=== PATIENT | male | born 1980 | race Caucasian/White ===

== ENCOUNTER 2018-06-09 14:01 | Emergency (ER) | payer SELFPAY ==
[~2018-06-09] VITALS: Ht 185.4 cm; Wt 102.5 kg
--- NOTE | 2018-06-09 14:58 | NUR ---
BIB SELF W C/O RLQ ABD PAIN RADIATING TO R LOWER BACK, NAUSEA SINCE THIS MORNING, TO ER BED 12, HOOKED TO PAUL, CHANGED TO ELISA, AWAITING MD OSORIO
--- NOTE | 2018-06-09 15:09 | NUR ---
PA MAIN AT BEDSIDE FOR EVAL
[2018-06-09 15:32] LABS: BASOPHILS % (AUTO) 0.6 % (0.0-2.0); EOSINOPHILS % (AUTO) 0.6 % (0.0-6.0); HEMATOCRIT 47 % (39-51); HEMOGLOBIN 16.1 g/dL (13.5-17.5); LYMPHOCYTES # (AUTO) 2.2 /CMM (0.8-4.8); MEAN CORPUSCULAR HGB CONC 35 g/dl (31.0-36.0); MEAN CORPUSCULAR VOLUME 88 fL (80-96); MONOCYTES # (AUTO) 0.8 /CMM (0.1-1.30); MONOCYTES % (AUTO) 10.8 % (2.0-12.0); NEUTROPHILS # (AUTO) 4.4 /CMM (1.8-8.9); PLATELET COUNT (AUTO) 283 /CMM (150-450); WHITE BLOOD COUNT (AUTO) 7.5 K/uL (4.3-11.0)
[2018-06-09 15:40] LABS: CALCIUM, SERUM 8.8 mg/dL (8.5-10.1); CARBON DIOXIDE 25 mmol/L (21-32); CHLORIDE 107 mmol/L (98-107); GLUCOSE 94 mg/dL (74-106); POTASSIUM 5.7 mmol/L (3.5-5.1); SODIUM SERUM 141 mmol/L (136-145); UREA NITROGEN, BLOOD 19 mg/dL (7-18)
--- NOTE | 2018-06-09 15:42 | NUR ---
US TECH AT BEDSIDE
[2018-06-09] MEDS ORDERED: ONDANSETRON 4 MG TAB.RAPDIS ONE (15:43)
[2018-06-09] MEDS ORDERED: LORAZEPAM 1 MG TABLET ONE (15:43)
[2018-06-09] MEDS: LORAZEPAM 1 MG TABLET PO ONE (15:46)
[2018-06-09] MEDS: ONDANSETRON 4 MG TAB.RAPDIS SL ONE (15:46)
[2018-06-09 15:57] LABS: ALANINE AMINOTRANSFERASE 40 U/L (12-78); ALBUMIN 3.8 g/dL (3.4-5.0); ALKALINE PHOSPHATASE 63 U/L (46-116); ASPARTATE AMINOTRANSFERASE 32 U/L (15-37); BILIRUBIN,TOTAL 0.6 mg/dL (0.2-1.0); LIPASE 177 U/L (73-393); TOTAL PROTEIN, SERUM 7.5 g/dL (6.4-8.2)
[2018-06-09 18:04] LABS: CREATININE 1.1 mg/dL (0.6-1.3); POTASSIUM 4.4 mmol/L (3.5-5.1)
[2018-06-09 18:05] VITALS: BP 126/85
[2018-06-09 18:10] LABS: ALBUMIN 3.8 g/dL (3.4-5.0); BILIRUBIN,TOTAL 0.5 mg/dL (0.2-1.0); TOTAL PROTEIN, SERUM 7.3 g/dL (6.4-8.2)
--- NOTE | 2018-06-09 18:34 | NUR ---
IV removed. Catheter intact and site benign. Pressure and 4x4 applied to site. No bleeding noted.Patient discharged to home in stable condition. Written and verbal after care instructions given. Patient verbalizes understanding of instruction.
== END 2018-06-09 18:40 | disposition home or self-care (01) ==
LOC: ER 14:05
DX: F41.9 Anxiety disorder, unspecified (principal); R10.11 Right upper quadrant pain; R10.13 Epigastric pain
CPT/HCPCS: 36415; 71045; 76705; 80053 ×2; 83690; 84484; 85025; 93005; 99284; Q0162

== ENCOUNTER 2018-09-22 22:26 | Emergency (ER) | payer OTHER ==
--- NOTE | 2018-09-22 22:35 | NUR ---
CALLED PT TO BE TRIAGED, NO ANSWER
--- NOTE | 2018-09-22 23:18 | NUR ---
CALLED PT TO BE TRIAGED, NO ANSWER
--- NOTE | 2018-09-23 00:02 | NUR ---
CALLED PT TO BE TRIAGED, NO ANSWER
--- NOTE | 2018-09-23 00:23 | NUR ---
CALLED PT TO BE TRIAGED, NO ANSWER
== END 2018-09-23 00:38 | disposition left against medical advice (07) ==
LOC: ER 22:45
DX: Z53.21 Procedure and treatment not carried out due to patient leaving prior to being seen by health care provider (principal)

== ENCOUNTER 2018-10-17 18:22 | Emergency (ER) | payer OTHER ==
[~2018-10-17] VITALS: Ht 185.4 cm; Wt 102.1 kg
--- NOTE | 2018-10-17 18:58 | NUR ---
patient came in to the ER c/o chest pain, sharp like pain, on room air, breathing evenly and unlabored. Connected to the monitor and pulse ox. kept comfortable, will continue to monitor accordingly.
[2018-10-17 18:59] LABS: BASOPHILS # (AUTO) 0.1 /CMM (0.0-0.2); BASOPHILS % (AUTO) 0.8 % (0.0-2.0); HEMATOCRIT 49 % (39-51); HEMOGLOBIN 16.6 g/dL (13.5-17.5); LYMPHOCYTES # (AUTO) 1.8 /CMM (0.8-4.8); LYMPHOCYTES % (AUTO) 28.4 % (20.0-44.0); MEAN CORPUSCULAR HGB CONC 34 g/dl (31.0-36.0); MEAN CORPUSCULAR VOLUME 88 fL (80-96); MONOCYTES # (AUTO) 0.8 /CMM (0.1-1.30); MONOCYTES % (AUTO) 12.8 % (2.0-12.0); NEUTROPHILS # (AUTO) 3.6 /CMM (1.8-8.9); PLATELET COUNT (AUTO) 288 /CMM (150-450); RED BLOOD CELL COUNT(AUTO) 5.53 MIL/uL (4.5-6.0); WHITE BLOOD COUNT (AUTO) 6.4 K/uL (4.3-11.0)
--- NOTE | 2018-10-17 18:59 | NUR ---
IV access initiated on the left AC g18, blood drawned and sent to lab.
[2018-10-17 19:06] LABS: CALCIUM, SERUM 8.8 mg/dL (8.5-10.1); CARBON DIOXIDE 28 mmol/L (21-32); CHLORIDE 105 mmol/L (98-107); CREATININE 1.2 mg/dL (0.6-1.3); GLUCOSE 97 mg/dL (74-106); POTASSIUM 4.3 mmol/L (3.5-5.1); SODIUM SERUM 141 mmol/L (136-145); UREA NITROGEN, BLOOD 15 mg/dL (7-18)
[2018-10-17] MEDS ORDERED: LORAZEPAM 1 MG TABLET PO ONE (19:30)
[2018-10-17] MEDS ORDERED: LORAZEPAM 0.5 MG TABLET ONE (19:32)
--- NOTE | 2018-10-17 19:33 | NUR ---
ER MD AT BEDSIDE TALKING TO PT REGARDING LAB RESULT. PENDING DISPOSITION. PT MEDICATED ORDERED.
--- NOTE | 2018-10-17 19:52 | NUR ---
IV removed. Catheter intact and site benign. Pressure and 4x4 applied to site. No bleeding noted. Patient discharged to home in stable condition. Written and verbal after care instructions given. Patient verbalizes understanding of instruction. ambulatory with a steady gait noted. pt aaox4 no acute distress noted, resp even and unlabored. advice pt not to drive or operate any machinery due to pt was given narcotic medicine. pt verbalize understanding.
[2018-10-17 19:53] VITALS: BP 132/78
== END 2018-10-17 19:54 | disposition home or self-care (01) ==
LOC: ER 18:22
DX: R07.89 Other chest pain (principal); Z60.2 Problems related to living alone
CPT/HCPCS: 36415; 71045-TC; 80048-TC; 84484-TC; 85025-TC

== ENCOUNTER 2018-10-25 11:25 | Emergency (ER) | payer OTHER ==
[~2018-10-25] VITALS: Ht 185.4 cm; Wt 102.1 kg
[2018-10-25 11:32] VITALS: BP 145/103
[2018-10-25] MEDS ORDERED: LORAZEPAM 0.5 MG TABLET ONE (11:43)
[2018-10-25] MEDS ORDERED: LORAZEPAM 0.5 MG TABLET PO ONE (12:00)
== END 2018-10-25 11:52 | disposition home or self-care (01) ==
LOC: ER 11:26
DX: F41.1 Generalized anxiety disorder (principal); F29 Unspecified psychosis not due to a substance or known physiological condition; Z60.2 Problems related to living alone

== ENCOUNTER 2018-11-02 04:47 | Emergency (ER) | payer OTHER ==
[~2018-11-02] VITALS: Ht 185.4 cm; Wt 102.1 kg
[2018-11-02 04:57] VITALS: BP 154/123
== END 2018-11-02 05:17 | disposition home or self-care (01) ==
LOC: ER 04:51
DX: F41.0 Panic disorder [episodic paroxysmal anxiety] (principal); Z60.2 Problems related to living alone

== ENCOUNTER 2018-12-22 14:08 | Emergency (ER) | payer OTHER ==
[~2018-12-22] VITALS: Ht 182.9 cm; Wt 102.1 kg
--- NOTE | 2018-12-22 14:30 | NUR ---
PATIENT CAME IN TO THE ER BIB BROTHER, TAKEN OFF ADDERALL BY PMD YESTERDAY, ANXIOUS ALL DAY. ON ROOM AIR, AMBULATORY WITH STEADY GAIT. CONNECTED TO THE MONITOR AND PULSE OX. WILL CONTINUE TO MONITOR ACCORDINGLY. BORTHER AT BEDSIDE.
[2018-12-22] MEDS ORDERED: LORAZEPAM 1 MG TABLET ONE ×2 (14:43→14:55)
--- NOTE | 2018-12-22 14:45 | NUR ---
patient very anxious and pacing in the razo way, informed MD and made aare. Patient brother verbalized if we could restraint him. MD ordered restraint with the help of security guard dispatcher, brother in the room with consent. Connected patient to the monitor and pulse ox.
[2018-12-22] MEDS ORDERED: LORAZEPAM 1 MG TABLET PO ONE ×2 (15:00)
[2018-12-22] MEDS ORDERED: HALOPERIDOL LACTATE INJ 5 MG/ML VIAL ONE ×2 (15:01→15:09)
[2018-12-22] MEDS ORDERED: diphenhydrAMINE HCL 50 MG/ML VIAL ONE ×2 (15:01→15:09)
[2018-12-22] MEDS ORDERED: HALOPERIDOL LACTATE INJ 5 MG/ML VIAL IM ONE (15:30)
[2018-12-22] MEDS ORDERED: diphenhydrAMINE HCL 50 MG/ML VIAL IM ONE (15:30)
--- NOTE | 2018-12-22 15:48 | NUR ---
Security guards in the room and wanded the patient.
--- NOTE | 2018-12-22 16:17 | NUR ---
urine collected and sent to lab.
[2018-12-22 16:30] LABS: APPEARANCE,URINE Clear (CLEAR); BILIRUBIN,URINE SMALL (NEGATIVE); BLOOD, URINE Trace-intact Ery/uL (NEGATIVE); COLOR,URINE Yellow (YELLOW); KETONES,URINE Negative (NEGATIVE); LEUKOCYTE ESTERASE ,URINE Negative (NEGATIVE); NITRITE, URINE Negative (NEGATIVE); PROTEIN,URINE Negative (NEGATIVE); UGLUCOSE Negative (NEGATIVE); UROBILINOGEN,URINE 0.2 EU/dL (0.2)
[2018-12-22 16:41] LABS: BACTERIA,URINE Rare /HPF (None Seen); SQUAMOUS EPITHELIAL CELL,UR Few /HPF (None Seen); WBC,URINE NONE SEEN /HPF (0-3)
[2018-12-22 16:48] LABS: BASOPHILS # (AUTO) 0.1 /CMM (0.0-0.2); BASOPHILS % (AUTO) 0.7 % (0.0-2.0); EOSINOPHILS % (AUTO) 0.9 % (0.0-6.0); HEMATOCRIT 49 % (39-51); HEMOGLOBIN 16.5 g/dL (13.5-17.5); LYMPHOCYTES # (AUTO) 1.7 /CMM (0.8-4.8); LYMPHOCYTES % (AUTO) 19.8 % (20.0-44.0); MEAN CORPUSCULAR HGB CONC 34 g/dl (31.0-36.0); MEAN CORPUSCULAR VOLUME 89 fL (80-96); MONOCYTES % (AUTO) 11.3 % (2.0-12.0); NEUTROPHILS # (AUTO) 5.7 /CMM (1.8-8.9); NEUTROPHILS % (AUTO) 67.3 % (43.0-81.0); PLATELET COUNT (AUTO) 290 /CMM (150-450); RED BLOOD CELL COUNT(AUTO) 5.51 MIL/uL (4.5-6.0); WHITE BLOOD COUNT (AUTO) 8.5 K/uL (4.3-11.0)
[2018-12-22 16:55] LABS: CARBON DIOXIDE 26 mmol/L (21-32); CHLORIDE 104 mmol/L (98-107); CREATININE 1.2 mg/dL (0.6-1.3); GLUCOSE 92 mg/dL (74-106); POTASSIUM 3.6 mmol/L (3.5-5.1); SODIUM SERUM 137 mmol/L (136-145); UREA NITROGEN, BLOOD 20 mg/dL (7-18)
[2018-12-22 17:02] LABS: ALANINE AMINOTRANSFERASE 36 U/L (12-78); ALBUMIN 3.8 g/dL (3.4-5.0); ALCOHOL, BLOOD < 3 mg/dL (0-0); ALKALINE PHOSPHATASE 60 U/L (46-116); ASPARTATE AMINOTRANSFERASE 21 U/L (15-37); BILIRUBIN,DIRECT 0.1 mg/dL (0.0-0.2); BILIRUBIN,TOTAL 0.8 mg/dL (0.2-1.0); TOTAL PROTEIN, SERUM 7.3 g/dL (6.4-8.2)
[2018-12-22 17:03] LABS: ACETAMINOPHEN < 2 ug/ml (10-30); SALICYLATE < 0.2 mg/dL (2.8-20.0)
--- NOTE | 2018-12-22 17:29 | NUR ---
patient in bed, asleep, arousable, in no distress.
--- NOTE | 2018-12-22 17:55 | NUR ---
sitter at bedside for constant monitoring.
--- NOTE | 2018-12-22 22:21 | NUR ---
PT ASLEEP IN BED, SUPINE W/ HOB ELEVATED, RESP EVEN & UNLABORED, NAD NOTED. ON CONTINUOUS MONITORING. BED LOW TO GROUND W/ SIDE RAILS UP FOR SAFETY. SITTER REMAINS AT BEDSIDE.
--- NOTE | 2018-12-22 23:59 | NUR ---
PT ABLE TO REPOSITION SELF IN BED, ASLEEP ON LT SIDE W/ RESP EVEN & UNLABORED, NAD NOTED. ON CONTINUOUS MONITORING. BED LOW TO GROUND, SIDE RAILS UP FOR SAFETY.
--- NOTE | 2018-12-23 01:22 | NUR ---
PT ASLEEP, REPOSITIONS SELF IN BED, LYING ON LT SIDE W/ NAD NOTED. ON CONTINUOUS MONITORING.
--- NOTE | 2018-12-23 02:53 | NUR ---
PT REPOSITIONING SELF IN BED, ASLEEP, SNORING W/ RESP EVEN & UNLABORED, ON CONTINUOUS MONITORING.
--- NOTE | 2018-12-23 05:39 | NUR ---
PT CONTINUES TO SLEEP, REPOSITIONG SELF IN BED W/ RESP EVEN & UNLABORED, EASILY AROUSABLE W/ NAD NOTED. BED LOW TO GROUND W/ SIDERAILS UP FOR SAFETY. ON CONTINUOUS MONITORING. AWAITING PSYCH EVAL IN MORNING.
--- NOTE | 2018-12-23 06:48 | NUR ---
ART, ASSEMBLY AND PACKING SUPERVISOR CALLED FOR PSYCH EVAL.
--- NOTE | 2018-12-23 08:22 | NUR ---
DUNCAN FORD [phone]
--- NOTE | 2018-12-23 08:53 | NUR ---
Social service consult for psychiatric evaluation. Pt. is a 38 year old male who was brought to [facility] ED by his brother Terrence for increasing anxiety and panic attacks for 1 day. Brother reported that pt has been hyperventilating for 2-3 days. VARSHA met with the pt. this morning. Pt. has been in the ED for over 12 hours. Pt. is alert and oriented x 3. Pt. is cooperative with SW during the assessment. Pt. states he sees a psychiatrist Dr. Mcadams in [place] in . Pt. is denying suicidal and homicidal ideations at this time. Pt. states he has visual hallucinations in the form of "white light." Pt. states he was taking Adderall but stopped taking the medication as indicated by his psychiatrist. Pt. is taking Abilify and Ativan. 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 Pt. states he has Social Anxiety Disorder and panic attacks. VARSHA contacted his brother Terrence, who wanted to speak with VARSHA. VARSHA spoke to Terrence who informed VARSHA that since May his brother has been unable to keep a job and has been living with him and his family. He also reports that the pt. has auditory hallucinations and has been talking to himself for several months. Terrence stated, he does not feel safe taking the pt. home. VARSHA informed him that pt. is not suicidal, however she will try to have parcel post officer Art evaluate the pt. VARSHA contacted Art who informed SW he will come to evaluate the pt at [facility].
[2018-12-23] MEDS ORDERED: OLANZAPINE 5 MG TABLET PO ONE (11:00)
[2018-12-23] MEDS ORDERED: OLANZAPINE 5 MG TABLET ONE (11:12)
--- NOTE | 2018-12-23 11:16 | NUR ---
PT EASILY AROUSABLE. PROVIDED W/ LUNCH TRAY. VSS.
--- NOTE | 2018-12-23 15:35 | NUR ---
PT AMBULATED TO THE BATHROOM. STEADY GAIT. PROVIDED W/ ORAL FLUIDS.
[2018-12-23] MEDS ORDERED: LORAZEPAM 1 MG TABLET ONE (16:28)
[2018-12-23] MEDS ORDERED: LORAZEPAM 1 MG TABLET PO ONE (16:30)
--- NOTE | 2018-12-23 16:57 | NUR ---
PT IS AWAKE, AAOX3. BROTHER AT BEDSIDE PROVIDING PT W/ CLOTHING. PT DENIES ANY SI/HI PT BROTHER WILL NOT TAKE PT HOME. PT DOEST NOT WANT TO STAY IN ER AND WISHES TO LEAVE. PT IS MEDICALLY AND PSYCH CLEARED. DISCHARED FROM ED IN STABLE CONDITION.
[2018-12-23 17:00] VITALS: BP 137/74
== END 2018-12-23 17:00 | disposition home or self-care (01) ==
LOC: ER 14:13
DX: F15.10 Other stimulant abuse, uncomplicated (principal); F41.9 Anxiety disorder, unspecified; F20.9 Schizophrenia, unspecified; F90.9 Attention-deficit hyperactivity disorder, unspecified type
CPT/HCPCS: 36415; 80048; 80076; 80305; 80307; 80329; 81001; 82550; 85025; 93005; 96372 ×2; 99284; G0480; J1200 ×2; J1630 ×2; 81000-TC